=== PATIENT | male | born 1960 | race Caucasian/White ===

== ENCOUNTER 2016-11-01 21:18 | Emergency (ER) | payer OTHER ==
[~2016-11-01] VITALS: Ht 190.5 cm; Wt 139.0 kg
[2016-11-01] MEDS ORDERED: BACL20TA PO (22:03)
[2016-11-01] MEDS ORDERED: GABA800T2 PO (22:03)
[2016-11-01] MEDS ORDERED: MORP15TA PO (22:03)
[2016-11-01] MEDS ORDERED: AMIT10TA PO (22:03)
[2016-11-01] MEDS ORDERED: BUDE10.2 INH (22:12)
[2016-11-01] MEDS ORDERED: ALBUTEROL SULFATE 2.5 MG/3 ML ONE (22:37)
[2016-11-01 23:44] LABS: BLOOD UREA NITROGEN 15 mg/dL (7-18)
[2016-11-02] MEDS ORDERED: OMNIPAQUE 350 MG/ML, 100ML BOTTLE ONE (00:30)
[2016-11-02 02:19] VITALS: BP 143/93
== END 2016-11-02 02:21 | disposition home or self-care (01) ==
LOC: ED 23:59
DX: J44.1 Chronic obstructive pulmonary disease with (acute) exacerbation (principal)
CPT/HCPCS: 36415; 71010; 71275; 80048; 82040; 85025; 93970; 94640; 99285; J7512; Q9967; 29505